=== PATIENT | male | born 1965 | race Caucasian/White ===

== ENCOUNTER 2017-03-06 10:12 | Observation (INO) | payer OTHER ==
[2017-03-06 10:46] LABS: BASOPHILS % (AUTO) 0.2 % (0.0-3.0); EOSINOPHILS % (AUTO) 0.2 % (0.0-7.0); HEMATOCRIT 39.1 % (42.0-52.0); HEMOGLOBIN 13.4 g/dl (14.0-18.0); IMMATURE GRANULOCYTE % (AUTO) 0.2 % (0.0-5.0); LYMPHOCYTES # (AUTO) 0.7 K/uL (0.60-3.4); LYMPHOCYTES % (AUTO) 15.6 (10.0-50.0); MEAN CORPUSCULAR HEMOGLOBIN 32.1 pg (27.0-31.0); MEAN CORPUSCULAR HGB CONC 34.3 (31.8-35.4); MEAN CORPUSCULAR VOLUME 93.8 fl (80.0-94.0); MONOCYTES # (AUTO) 0.5 K/uL (0.4-2.0); MONOCYTES % (AUTO) 10.8 (0-10); NEUTROPHILS # (AUTO) 3.4 K/ul (2.0-6.9); PLATELET COUNT 120 10^3/uL (140-440); RED BLOOD COUNT 4.17 10^6/ul (4.70-6.10); WHITE BLOOD COUNT 4.63 K/ul (4.2-10.2)
--- NOTE | 2017-03-06 11:01 | CT ---
EXAM: CT of the chest without contrast History: Cough and fever. Comparison: Chest radiograph 01/20/2013 Technique: Multiplanar CT images through the thorax were obtained without the administration of IV contrast Findings: Normal heart size. No pericardial effusion. Mild coronary calcifications. Great vessel s are grossly unremarkable on this limited noncontrast study. No pathologically enlarged axillary l ymph nodes. There are a few borderline enlarged mediastinal lymph nodes. Evaluation for hilar lymp h nodes is limited due to the lack of contrast administration. Patchy right lower lobe consolidation. Tree in bud opacities are seen within the right middle lobe. No pneumothorax. No pleural fluid. Calcified granulomas seen within the thorax. Within the visualized upper abdomen, no acute findings. No acute osseous abnormalities. Impression: Right lower lobe pneumonia.
[2017-03-06 11:05] LABS: FLU INTERNAL QC INTERNAL QC VALID; RAPID FLU A NEGATIVE (NEGATIVE); RAPID FLU B NEGATIVE (NEGATIVE)
[2017-03-06] MEDS ORDERED: ROCEPHIN 1 GM in SODIUM CHLORIDE 50 ML IV STA (11:19)
[2017-03-06 11:24] LABS: ALANINE AMINOTRANSFERASE 60 U/L (12-78); ALBUMIN 3.9 g/dL (3.4-5.0); ALKALINE PHOSPHATASE 53 U/L (50-136); ANION GAP 16.9; ASPARTATE AMINO TRANSFERASE 52 U/L (15-37); BILIRUBIN,TOTAL 0.58 mg/dL (0.00-1.20); BLOOD UREA NITROGEN 11 mg/dL (7-18); BUN/CREATININE RATIO 8.94; CARBON DIOXIDE 24 mmol/L (21-32); CHLORIDE 98 mmol/L (98-107); CREATINE KINASE 180 U/L; CREATININE 1.23 mg/dL (0.60-1.10); GLUCOSE 106 mg/dL (70-100); POTASSIUM 3.9 mmol/L (3.5-5.1); SODIUM 135 mmol/L (136-145); TOTAL PROTEIN 7.8 g/dL (6.4-8.2)
[2017-03-06 11:30] LABS: CREATINE KINASE MB 1.1 ng/ml (0.0-3.6)
[2017-03-06] MEDS ORDERED: ROCEPHIN ONE (11:36)
[2017-03-06 11:41] LABS: ABG PH 7.439 (7.35-7.45)
[2017-03-06 11:42] LABS: ABG BASE EXCESS -1 (-2.0-2.0); ABG HCO3 22.9 (22.0-26.0); ABG PCO2 33.7 mmHg (35-45); ABG TCO2 24 (22.0-28.0)
[2017-03-06] MEDS ORDERED: ZOFRAN 4 MG/2 ML IVP STA (12:17)
[2017-03-06] MEDS ORDERED: MORPHINE 4 MG/ML SYRINGE IVP STA (12:17)
--- NOTE | 2017-03-06 12:29 | ED.PDOC ---
General ED Provider: Dr. SHARON LIRA Chief Complaint: Respiratory Complaint Stated Complaint: cough, fever Time Seen by Physician: 10:13 Mode of Arrival: Walk-In Information Source: Patient Exam Limitations: No limitations Nursing and Triage Documentation Reviewed and Agree: Yes Respiratory Complaint Exam - Respiratory Complaint/Exam Onset/Duration: 1 day Symptoms Are: Still present Timing: Constant Initial Severity: Moderate Current Severity: Moderate Location: Chest Character: Reports: Non-productive cough Aggravating: Reports: None Alleviating: Reports: None Associated Signs and Symptoms: Reports: Fever, Chills, Chest pain (body aches back pain), Nasal congestion, Decreased oral intake. Denies: Rapid breathing, Dyspnea, Pleuritic chest pain, Wheezing, Hemoptysis, Dizziness, Calf pain, Calf swelling, Edema, URI, Hoarseness, Sinus discomfort, Vomiting, Sore throat, Weight loss, Increased thirst, Increased appetite, Increased urination History of Healthcare-Acquired Pneumonia: No Related Surgical History: Reports: None Pulmonary Embolism Risk Factors: None Cardiac Risk Factors: Reports: None Pseudomonas Risk Factors: Reports: None Tuberculosis Risk Factors: Reports: None Status Asthmaticus Risk Factors: Reports: None Home Oxygen Use: No Recent Stress Test: No Recent Echo/LV Function: No Current Antibiotic Use: No Current Asthma Medication Use: No Respiratory Distress: None Inadequate Respiratory Effort: No Dysphagia Present: No Stridor Present: No JVD Present: No Accessory Muscle Use: No Retractions: Not Present Diminished Breath Sounds: Yes Sinus Tenderness: None Grunting Respirations: No Kussmaul Respirations: No Differential Diagnoses: Pneumonia Review of Systems - Review Of Systems Constitutional: Reports: Chills, Fever, Malaise Eyes: Reports: No symptoms Ears, Nose, Mouth, Throat: Reports: No symptoms Respiratory: Reports: Cough, Short of air Cardiac: Reports: No symptoms GI: Reports: No symptoms : Reports: No symptoms Musculoskeletal: Reports: No symptoms Skin: Reports: No symptoms Neurological: Reports: No symptoms Endocrine: Reports: No symptoms Hematologic/Lymphatic: Reports: No symptoms All Other Systems: Reviewed and Negative Past Medical History - Past Medical History Previously Healthy: Yes Endocrine: Reports: None Cardiovascular: Reports: None Respiratory: Reports: None Hematological: Reports: None Gastrointestinal: Reports: None Genitourinary: Reports: None Neuro/Psych: Reports: None Musculoskeletal: Reports: None Cancer: Reports: None - Surgical History General Surgical History: Reports: Unknown - Family History Family History: Reports: Unknown - Social History Smoking Status: Never smoker Hx Substance Use: No Alcohol Screening: Occasionally Physical Exam - Physical Exam Appearance: Ill-appearing Eyes: BALTA, EOMI, Conjunctiva clear ENT: Ears normal, Nose normal, Oropharynx normal Respiratory: Breath sounds diminished, Rhonchi Cardiovascular: RRR, Pulses normal, No rub, No murmur GI/: Soft, Nontender, No masses, Bowel sounds normal, No Organomegaly Musculoskeletal: Normal strength, ROM intact, No edema, No calf tenderness Skin: Warm, Dry, Normal color Neurological: Sensation intact, Motor intact, Reflexes intact, Cranial nerves intact, Alert, Oriented Psychiatric: Affect appropriate, Mood appropriate Interpretation - Radiology Interpretation Radiology Interpretation By: Radiologist Radiology Results: Positive (pneumoni) Physician Notification - Case Discussed Physician Notified: hospitalist Admit To: Inpatient Critical Care Note - Critical Care Note Total Time (mins): 0 Course - Course Hematology/Chemistry: 03/06/17 10:40 03/06/17 10:40 Orders, Labs, Meds: Lab Review 03/06/17 03/06/17 10:40 11:35 WBC 4.63 RBC 4.17 L Hgb 13.4 L Hct 39.1 L MCV 93.8 MCH 32.1 H MCHC 34.3 RDW Coeff of Angel 13.5 Plt Count 120 L Immature Gran % (Auto) 0.2 Neut % (Auto) 73.0 Lymph % (Auto) 15.6 Morgan % (Auto) 10.8 H Eos % (Auto) 0.2 Baso % (Auto) 0.2 Immature Gran # (Auto) 0.0 Neut # 3.4 Lymph # 0.7 Morgan # 0.5 Eos # 0.0 Baso # 0.0 Puncture Site R rad O2 Saturation 92.0 L ABG pH 7.439 ABG pCO2 33.7 L ABG pO2 60.0 L ABG HCO3 22.9 ABG Total CO2 24 ABG Base Excess -1 Shane Test + FiO2 % 21.0 Sodium 135 L Potassium 3.9 Chloride 98 Carbon Dioxide 24 Anion Gap 16.9 BUN 11 Creatinine 1.23 H Estimated GFR (MDRD) 62.00 BUN/Creatinine Ratio 8.94 Glucose 106 H Calcium 9.0 Total Bilirubin 0.58 AST 52 H ALT 60 Alkaline Phosphatase 53 Total Creatine Kinase 180 CK-MB (CK-2) 1.1 CK-MB (CK-2) % 0.38872 Troponin I < 0.0100 Total Protein 7.8 Albumin 3.9 Globulin 3.9 Albumin/Globulin Ratio 1.00 Influenza A (Rapid) Negative Influenza B (Rapid) Negative Orders Category Date Time Status ABG DRAW REQUEST Stat CARDIO 03/06/17 11:19 Completed EKG-(ED ONLY) Stat CARDIO 03/06/17 10:29 Completed ED IV/MEDIPORT/POWERPORT .ONCE EMERGENCY 03/06/17 11:20 Active ABG Stat LAB 03/06/17 11:35 Completed BLOOD CULTURE Stat LAB 03/06/17 12:16 Ordered CBC W/ AUTO DIFF Stat LAB 03/06/17 10:40 Completed COMPREHENSIVE METABOLIC PANEL Stat LAB 03/06/17 10:40 Completed CREATINE KINASE Stat LAB 03/06/17 10:40 Completed LACTIC ACID Stat LAB 03/06/17 12:16 Ordered MOLECULAR GROUP A STREP Stat LAB 03/06/17 10:40 Results PROCALCITONIN Stat LAB 03/06/17 Ordered RAPID FLU A/B Stat LAB 03/06/17 10:40 Completed STREP SCREEN Stat LAB 03/06/17 10:40 Results TROPONIN I Stat LAB 03/06/17 10:40 Completed 0.9 % Sodium Chloride [Saline Flush] MEDS 03/06/17 11:19 Active 1 syr IVF PRN PRN Ceftriaxone Sodium [Rocephin] MEDS 03/06/17 11:36 Discontinued 1 gm .ROUTE .STK-MED ONE Ceftriaxone Sodium [Rocephin] 1 gm MEDS 03/06/17 11:19 Discontinued 0.9 % Sodium Chloride [Sodium Chloride] 50 ml IV ONCE Morphine Sulfate [Morphine 4 mg/ml Syringe] MEDS 03/06/17 12:17 Stat 4 mg IVP ONCE STA Ondansetron HCl/Pf [Zofran 4 mg/2 ml] MEDS 03/06/17 12:17 Stat 4 mg IVP ONCE STA CT CHEST W/O CONTRAST Stat RADS 03/06/17 10:31 Completed Medications Generic Name Dose Route Start Last Admin Trade Name Freq PRN Reason Stop Dose Admin Sodium Chloride 1 syr 03/06/17 11:19 Saline Flush IVF PRN PRN To flush IV Discontinued Medications Generic Name Dose Route Start Last Admin Trade Name Freq PRN Reason Stop Dose Admin Ceftriaxone Sodium 1 gm/ 50 mls @ 75 mls/hr 03/06/17 11:19 03/06/17 11:53 Sodium Chloride IV 03/06/17 11:58 75 mls/hr ONCE STA Administration Morphine Sulfate 4 mg 03/06/17 12:17 Morphine 4 Mg/Ml Syringe IVP 03/06/17 12:18 ONCE STA Ondansetron HCl 4 mg 03/06/17 12:17 Zofran 4 Mg/2 Ml IVP 03/06/17 12:18 ONCE STA Vital Signs: Temp Pulse Resp BP Pulse Ox 03/06/17 10:13 100.4 F H 99 H 18 114/79 94 L Departure - Departure Time of Disposition: 12:30 Disposition: ADMITTED INPATIENT Discharge Problem: Pneumonia Instructions: Pneumonitis (ED) Condition: Good Pt referred to PMD for follow-up: Yes (admitt) Allergies/Adverse Reactions: Allergies No Known Allergies Allergy (Verified 03/06/17 10:17) Home Medications: Ambulatory Orders 1 [No Reported Medications] 03/06/17 Disposition Discussed With: Patient, Family
[2017-03-06] MEDS ORDERED: SODIUM CHLORIDE 1,000 ML IV SCH (12:30)
[2017-03-06] MEDS ORDERED: LEVAQUIN 500 MG in PREMIX 100 ML D5W 1 BAG IV SCH (12:30)
[2017-03-06] MEDS ORDERED: LEVAQUIN 750 MG in PREMIX 150 ML D5W 1 BAG IV STA (13:07)
[2017-03-06 13:18] VITALS: BMI 3678.3
[2017-03-06] MEDS: INFUVITE ADULT 10 ML in D5%-1/2NS-KCL 20 MEQ/L IV SOL 1,000 ML IV SCH (13:27)
[2017-03-06 13:28] LABS: BILIRUBIN,URINE 1+ (NEGATIVE); KETONES,URINE Negative (NEGATIVE); LEUKOCYTE ESTERASE ,URINE Negative (NEGATIVE); NITRITE,URINE Negative (NEGATIVE); PH,URINE 5.5 (5-9); PROTEIN,URINE 2+ (NEGATIVE); URINE, BLOOD Negative (NEGATIVE)
[2017-03-06 13:30] LABS: ADD URINE MICROSCOPIC YES
[2017-03-06 13:38] LABS: COCAIN SCREEN,URINE NEGATIVE (NEGATIVE)
[2017-03-06] MEDS ORDERED: TYLENOL PO STA (14:41)
[2017-03-06] MEDS ORDERED: INFUVITE ADULT IV ONE (23:42)
[2017-03-07] MEDS: INFUVITE ADULT 10 ML in D5%-1/2NS-KCL 20 MEQ/L IV SOL 1,000 ML IV SCH (00:38)
[2017-03-07 05:26] LABS: BASOPHILS % (AUTO) 0.3 % (0.0-3.0); HEMATOCRIT 38.4 % (42.0-52.0); HEMOGLOBIN 12.9 g/dl (14.0-18.0); IMMATURE GRANULOCYTE % (AUTO) 0.3 % (0.0-5.0); LYMPHOCYTES # (AUTO) 0.9 K/uL (0.60-3.4); LYMPHOCYTES % (AUTO) 30.9 (10.0-50.0); MEAN CORPUSCULAR HEMOGLOBIN 31.7 pg (27.0-31.0); MEAN CORPUSCULAR HGB CONC 33.6 (31.8-35.4); MEAN CORPUSCULAR VOLUME 94.3 fl (80.0-94.0); MONOCYTES # (AUTO) 0.4 K/uL (0.4-2.0); MONOCYTES % (AUTO) 14.4 (0-10); NEUTROPHILS # (AUTO) 1.6 K/ul (2.0-6.9); NEUTROPHILS % (AUTO) 54.1; PLATELET COUNT 109 10^3/uL (140-440); RED BLOOD COUNT 4.07 10^6/ul (4.70-6.10); WHITE BLOOD COUNT 2.98 K/ul (4.2-10.2)
[2017-03-07 06:00] LABS: ALBUMIN 3.6 g/dL (3.4-5.0); ALBUMIN/GLOBULIN RATIO 0.97; ANION GAP 15.2; BILIRUBIN,TOTAL 0.5 mg/dL (0.00-1.20); BUN/CREATININE RATIO 9.64; CALCIUM 8.5 mg/dL (8.2-10.2); CREATININE 1.14 mg/dL (0.60-1.10); POTASSIUM 5.2 mmol/L (3.5-5.1); TOTAL PROTEIN 7.3 g/dL (6.4-8.2)
[2017-03-07] MEDS: LEVAQUIN 750 MG in PREMIX 150 ML D5W 1 BAG IV SCH (08:40)
--- NOTE | 2017-03-07 09:47 | CT ---
EXAM: CT chest without contrast HISTORY: Cough and back pain COMPARISON: CT chest 03/06/2017 yesterday TECHNIQUE: Serial axial images of the chest were obtained from the lung apices to the upper abdomen without contrast. These were viewed in multiple planes. FINDINGS: The thyroid is normal. The visualized vessels are unremarkable without aneurysm or steno sis. The heart is unchanged in size without pericardial effusion. There are mediastinal lymph node s with a subcarinal lymph node measuring 0.8 cm in diameter and a right paratracheal lymph node whic h is unchanged. Calcified mediastinal and left hilar lymph nodes are present.. There is no pneumothorax or pleural effusion. Patchy consolidation in the right lower lobe is minim ally changed in comparison to prior exam. There is patchy nodular consolidation and ground-glass in the right middle lobe adjacent to the fissure on image 33. The airways are patent. Limited views of the soft tissues in the upper abdomen are unchanged and unremarkable. Osseous stru ctures are unchanged. IMPRESSION: Minimal change in right lower lobe pneumonia with minimal involvement in the right middle lobe.
[2017-03-07] MEDS: INFUVITE ADULT 10 ML in DEXTROSE 5%-1/2NS IV SOLUTION 1,000 ML IV SCH ×2 (09:55→20:54)
[2017-03-07] MEDS ORDERED: INFUVITE ADULT IV ONE (20:12)
[2017-03-07 20:15] LABS: COCAIN SCREEN,URINE NEGATIVE (NEGATIVE)
[2017-03-08 04:49] LABS: BASOPHILS % (AUTO) 0.7 % (0.0-3.0); HEMATOCRIT 40.1 % (42.0-52.0); HEMOGLOBIN 13.4 g/dl (14.0-18.0); IMMATURE GRANULOCYTE % (AUTO) 0.7 % (0.0-5.0); LYMPHOCYTES # (AUTO) 1.1 K/uL (0.60-3.4); LYMPHOCYTES % (AUTO) 36.5 (10.0-50.0); MEAN CORPUSCULAR HEMOGLOBIN 31.5 pg (27.0-31.0); MEAN CORPUSCULAR HGB CONC 33.4 (31.8-35.4); MEAN CORPUSCULAR VOLUME 94.4 fl (80.0-94.0); MONOCYTES # (AUTO) 0.4 K/uL (0.4-2.0); NEUTROPHILS # (AUTO) 1.5 K/ul (2.0-6.9); NEUTROPHILS % (AUTO) 48.1; PLATELET COUNT 109 10^3/uL (140-440); RED BLOOD COUNT 4.25 10^6/ul (4.70-6.10)
[2017-03-08 05:09] LABS: ALBUMIN 3.7 g/dL (3.4-5.0); ALBUMIN/GLOBULIN RATIO 0.9; ANION GAP 13.2; BILIRUBIN,TOTAL 0.45 mg/dL (0.00-1.20); BUN/CREATININE RATIO 9.17; CALCIUM 9.1 mg/dL (8.2-10.2); CREATININE 1.09 mg/dL (0.60-1.10); POTASSIUM 4.2 mmol/L (3.5-5.1); TOTAL PROTEIN 7.8 g/dL (6.4-8.2)
[2017-03-08 05:38] LABS: WHITE BLOOD COUNT 3.01 K/ul (4.2-10.2)
[2017-03-08] MEDS ORDERED: INFUVITE ADULT IV ONE ×2 (07:06→19:50)
[2017-03-08] MEDS: INFUVITE ADULT 10 ML in DEXTROSE 5%-1/2NS IV SOLUTION 1,000 ML IV SCH ×2 (07:15→20:03)
[2017-03-08] MEDS: LEVAQUIN 750 MG in PREMIX 150 ML D5W 1 BAG IV SCH (09:30)
--- NOTE | 2017-03-08 13:42 | PN ---
DATE OF VISIT: 03/07/17 SUBJECTIVE: The patient is alert and not afebrile this morning although he was febrile as late as 10:00 03/06/17 with a temperature 101.6. Also was still febrile on at 5:25am but since then his temperature has remained normal. The patient at 6:00pm 03/07/17 had a temperature of 98.6, pulse 72, blood pressure 111/73, respiratory rate 20 and oxygen saturation 94% at two liters. The patient is alert and oriented and not dyspneic or tachypneic and no cyanosis. LUNG: Clear to auscultation in both sides except for the lower half which has rales. Breath sounds are also diminished in the right lower posterior chest wall. I did mention to the that patient that his drug showed a positive for benzodiazepine; medication such as Valium, Xanax or Lorazepam or the more common ones that are being used although there are several medications that are related to the benzo. He also has positive for marijuana. The patient told him that he had not used any of those medications and had used since after high school. I did tell him that it is positive and he wanted to be sure about that. I told him that I would repeat the testing. NATALID
--- NOTE | 2017-03-08 13:54 | PN ---
DATE OF VISIT: 03/08/17 SUBJECTIVE: The patient is alert and feeling better and had remained afebrile since yesterday. I did see him about 12:30pm today and his vital signs at 10:00am this morning showed a temperature of 97.4, pulse 72, blood pressure 111/74, respiratory rate 20 and oxygen saturation 96% with 2 liters. I will stop the oxygen and see what happens. LUNGS: Still has rales in right lower half but less. HEART: Audible with good tones Repeat urine drug screen done yesterday was positive for benzo as well as Cannabinoids. The opioids are now negative. The patient was given Morphine in the emergency room 03/06/17. I mentioned to the patient that the urine screen is still positive for the benzodiazepine and mentioned some of the medication as well as the Cannabinoids which is marijuana. I told him that we do test those not for purposes of the law but it is for our information and the course of the treatment. The patient did not seem to question anymore like yesterday. I had asked for a quantitative determination of the amounts of this medications although it is now more than 24 hours since he was admitted to the hospital. The patient's CMV IgG is negative and EBV EA IgG is also negative. Mycoplasma pneumonia IgG and IgM are negative. This patient is receiving 750mg of Levaquin intervenously daily. If this patient remained afebrile tomorrow that he will most likely be discharged. We obtained another X-ray just for some idea whether the problem is improved. KIMBERLY
--- NOTE | 2017-03-08 14:20 | HP ---
CHIEF COMPLAINT/HISTORY OF PRESENT ILLNESS: Flu like symptoms about three days prior to presentation to the emergency room consisting of nonproductive cough and fever, body aches, runny nose and sore throat. The patient's initial evaluation at the emergency room was negative for rapid strep and rapid A and B. Chest x-ray did show right middle lobe pneumonia. The patient was then admitted because of the pneumonia. The emergency room physician did contact me with regards to this patient and I did ask the ER MD to get a blood culture as well as sputum culture and gram stain prior to being transported to the floor. The patient did complain of pain in the chest, right posterior. The patient had shoulder and clavicular fracture and was also admitted to [facility] in 2013 for about two weeks. He told me that he had several tests done and after discharged he was contacted to go to [facility] for Cardiac workup and that was accomplished and the workup was negative and he was told that his heart was that of a 20 year old man. FAMILY HISTORY: Mother at age 50 of congestive heart failure Father suddenly probably from heart disease SOCIAL HISTORY: The patient is and resides with family. 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 MEDICATIONS: None except over the counter medications for cough. ALLERGIES: No known drug allergies. REVIEW OF SYSTEMS: CONSTITUTIONAL: The patient has fever, no chills with fatigue. SANITARIAN: Denies any headaches, ataxia, dizziness or near syncope or seizure disorder VISUAL: Denies any blurred, double or transient loss of vision AUDITORY: Hearing is good and denies any tinnitus or pain or drainage. RESPIRATORY: The patient has a nonproductive cough with some sore throat. CARDIOVASCULAR: The patient denies any anterior chest pain or oppression. He does have pain in the right posterior lateral chest. GASTROINTESTINAL: Appetite is decreased since the illness. No abdominal pain. No vomiting or diarrhea. GENITOURINARY: Denies any pain, frequency or urgency or urination. MUSCULOSKELETAL: The patient does have some muscular aches more or less generalized. Denies any joint swelling or redness with pain. INTEGUMENT: Denies any rash or pleuritis ENDOCRINE: Negative HEMATOLOGIC: Negative PSYCHIATRIC: Affect is down. The patient doesn't seems to be more open to answering questions maybe he doesn't feel well. PHYSICAL EXAMINATION: GENERAL: The patient is a 51 year old male admitted because of fever, muscle aches, cough nonproductive for the last three days. VITAL SIGNS: Temperature on admission 100.8, pulse 84, blood pressure 99/60, respiratory rate 22, oxygen saturation 95% at 2 liters. He is 5'7 and 170 pounds. HEAD: Unremarkable FACE: Symmetrical and equal no facial weakness. No remarkable tenderness in the frontal maxillary sinus areas to palpation under pressure. EYES: Pupils equal/reactive to light. Conjunctivae not pale. Sclerae not icteric. THROAT: No inflammation, tumors or exudate. NECK: No masses. No bruit. No tenderness. No rigidity. CHEST: Symmetrical and equal with good expansion. No remarkable tenderness. LUNGS: Breath sounds are heard in both sides, diminished in the right lower half with rales but no wheezing. HEART: Audible and regular with good tones. No murmurs. Not tachycardiac ABDOMEN: Soft. No remarkable tenderness. No guarding. Bowel sounds are active. No masses palpable. LOWER EXTREMITIES: Symmetrical and equal with no significant edema. Pedal pulses are present. UPPER EXTREMITIES: Symmetrical and equal ASSESSMENT: 1. Right middle lobe pneumonia (Community acquired) 2. History of right Clavicular and shoulder fracture 3. History of febrile illness three years ago. [facility]
[2017-03-09 04:45] LABS: BASOPHILS % (AUTO) 0.3 % (0.0-3.0); EOSINOPHILS # (AUTO) 0.1 K/ul (0.0-0.7); EOSINOPHILS % (AUTO) 1.5 % (0.0-7.0); HEMATOCRIT 37.6 % (42.0-52.0); HEMOGLOBIN 12.6 g/dl (14.0-18.0); LYMPHOCYTES # (AUTO) 1.3 K/uL (0.60-3.4); LYMPHOCYTES % (AUTO) 39.6 (10.0-50.0); MEAN CORPUSCULAR HEMOGLOBIN 31.2 pg (27.0-31.0); MEAN CORPUSCULAR HGB CONC 33.5 (31.8-35.4); MEAN CORPUSCULAR VOLUME 93.1 fl (80.0-94.0); MONOCYTES # (AUTO) 0.4 K/uL (0.4-2.0); MONOCYTES % (AUTO) 12.3 (0-10); NEUTROPHILS # (AUTO) 1.5 K/ul (2.0-6.9); NEUTROPHILS % (AUTO) 46.3; PLATELET COUNT 111 10^3/uL (140-440); RED BLOOD COUNT 4.04 10^6/ul (4.70-6.10); WHITE BLOOD COUNT 3.33 K/ul (4.2-10.2)
[2017-03-09 05:07] LABS: ALBUMIN 3.5 g/dL (3.4-5.0); ALBUMIN/GLOBULIN RATIO 0.92; ANION GAP 12.4; BILIRUBIN,TOTAL 0.39 mg/dL (0.00-1.20); POTASSIUM 4.4 mmol/L (3.5-5.1); TOTAL PROTEIN 7.3 g/dL (6.4-8.2)
[2017-03-09 05:16] VITALS: TEMP 97.2
[2017-03-09] MEDS ORDERED: INFUVITE ADULT IV ONE (05:56)
[2017-03-09] MEDS: INFUVITE ADULT 10 ML in DEXTROSE 5%-1/2NS IV SOLUTION 1,000 ML IV SCH (06:24)
[2017-03-09] MEDS: LEVAQUIN 750 MG in PREMIX 150 ML D5W 1 BAG IV SCH (08:08)
[2017-03-09 09:36] VITALS: BP 114/78
--- NOTE | 2017-03-14 11:46 | DS ---
PATIENT IDENTIFICATION: 51 year old male was seen at the emergency room because of what he described at flu symptom in the last three days consisting of nonproductive cough, fever, body aches, runny nose and sore throat. The rapid A and B was negative. A chest x-ray showed right middle lobe pneumonia. The patient was admitted to the hospital with that diagnosis. He also complained of pain in the right posterolateral chest lower. HOSPITAL COURSE: [place] [facility] [place] in the hospital for about two weeks and discharged and subsequently advised to go to [facility] for a cardiac work-up. He claims that the cardiac work-up was negative and he never know what caused his problems. I tried to locate his records and they are not in the computer and probably it was before the EMR. He has significant history of coronary artery disease in the family. Mother at age 50 with heart failure and father also suddenly, probably from heart disease. 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 The patient appeared weak on admission and has a poor appetite. LUNGS: The lungs has rales at the right base, but no wheezing and no rales on the left side and also no rales anteriorly. HEART: The heart had normal sinus rhythm with no murmurs. ABDOMEN: The abdomen was without any tenderness. The bowel sounds were active. LOWER EXTREMITIES: No edema. No tenderness in the calf muscles and pain in the posterior legs with walking or standing. Rocephin was instituted initially and later given also Levaquin to start the next day. When I saw the patient, I had the Levaquin started on the same day of admission at a higher dose, 750 mg instead of 500 mg daily. The patient had a low grade temperature from admission and did spike to 101.6 on 03/06/2017 at 10 o'clock in the evening. The temperature at 2 o'clock in the morning of 03/07 was now normal at 99 and then 100.3 at 5:25 a.m. Since then, the temperature has returned to normal ranging from 98.2 to 98.6 and 97.1 until the time of discharge on 03/09/2017. He is alert and feeling better and he claimed to be feeling better and I asked him again and he said that he is doing good and his appetite is returning and had not had any fever that he could tell. I told him that he had not had any fever on records for about two days. VITAL SIGNS: At 9:34 a.m. on 03/09/2017 showed a temperature of 97.2, pulse 83 , blood pressure 114/78, respiratory rate 20, oxygen saturation 95 at room air. His oxygen had been discontinued since the day before. NECK: No masses and no bruit and rigidity. CHEST: Symmetrical and equal with good expansion. LUNGS: Still has rales on the right lower base without any wheezing. The left is clear. HEART: Normal sinus rhythm. ABDOMEN: Soft and nontender. LOWER EXTREMITIES: No tenderness in the calf muscles to palpation and no pain on standing. This patient had a chest CT on 03/06/2017 showing the right middle lobe pneumonia and also 03/07/2017 showing the right lower lobe pneumonia, as well as minimal on the right middle lobe. The patient was advised that his pneumonia hasn't resolved. He is supposed to return to work this coming Sunday and I did advise him that he could not return to work until I see him on . It is also not reasonable to return since he still has the pneumonic process and he just recuperating at this time. I further advised him to avoid any rapid changes in temperatures such as being cold and being hot. He should avoid being soaked in rain while he is recuperating. He told me that before he got sick, while on the barge, that he had been in the rain for about 8 days. FINAL DIAGNOSES: RIGHT LOWER LOBE PNEUMONIA WITH MINIMAL CHANGE AND MINIMAL RIGHT MIDDLE LOBE NOTE: Blood cultures were negative and no sputum was obtained for culture and gram stain. Rapid strep was negative. PLAN: The patient was further advised to go to the emergency room if he would have any resurgence of the problem and also further advised to stop the medication, Levaquin, if he develops diarrhea numbering three times or more. I told him that I should see him and I did inform where the office is located and he will be further instructed by the nurse. He told me that his was coming and that he would like the nurse to tell his where he is supposed to be on . This patient is given a note to the effect that he could not return to work until he was examined for follow up. He should have a chest x-ray prior to the examination on . He could have the x-ray late Sunday or early . KIMBERLY
== END 2017-03-09 13:50 | disposition home or self-care (01) ==
LOC: ED 10:12 → INTOOBSV 12:32 → MEDSURG B 12:32
PROVIDERS: ADMIT General Practice; ATTEND General Practice
DX: J18.9 Pneumonia, unspecified organism (principal); R50.9 Fever, unspecified; R07.9 Chest pain, unspecified; F12.90 Cannabis use, unspecified, uncomplicated; F19.90 Other psychoactive substance use, unspecified, uncomplicated; Z82.49 Family history of ischemic heart disease and other diseases of the circulatory system
CPT/HCPCS: 36415; 80053; 80306; 81001; 82550; 82553; 82803; 83605; 84145; 84484; 85025; 86631; 86632; 86644; 86663; 86710; 86738; 87040; 87651; 87804; 87880; 93005; 93010; 96361; 96365; 96366; 96375; 99222; 99232; 99239; 99284

== ENCOUNTER 2017-03-14 13:57 | Outpatient (CLI) ==
--- NOTE | 2017-03-14 14:26 | DI ---
EXAM: PA and lateral views of the chest HISTORY: Follow up pneumonia COMPARISON: 03/07/2017 CT FINDINGS: The right middle lobe and right lower lobe pneumonia seen on prior CT is not visualized this exam. There is minimal left basilar atelectasis. No pneumothorax or pleural effusion identified. The cardiomediastinal silhouette is within normal limits. There is widening of the right acromioclavicular joint. There degenerative changes of the left acrom ioclavicular joint. IMPRESSION: Right middle lobe and right lower lobe pneumonia identified on prior CT is not visualized this exam. Minimal left basilar atelectasis.
== END 2017-03-14 13:58 | disposition home or self-care (01) ==
LOC: RAD 13:57
PROVIDERS: ATTEND General Practice
DX: J18.9 Pneumonia, unspecified organism (principal)